=== PATIENT | female | born 1970 | race Two or more races ===

== ENCOUNTER → 2016-10-22 | Outpatient (CLI) | payer BC ==
--- NOTE | 2016-10-22 15:49 | WOMENS IMAGING REPORT ---
EXAM DESCRIPTION: BILAT SCREENING MAMMO W/CAD COMPLETED DATE/TIME: 10/22/2016 11:45 am REASON FOR STUDY: Z12.31 ROUTINE SCREENING MAMMO Z12.31 ENCNTR SCREEN MAMMOGRAM FOR MALIGNANT NEOPL ASM OF [place] COMPARISON: None. TECHNIQUE: Standard craniocaudal and mediolateral oblique views of each breast recorded using [employer] l acquisition. LIMITATIONS: None. FINDINGS: No masses, calcifications or architectural distortion. No areas of suspicion. Read with the assistance of CAD. .[facility] - R2 Cenova Version 1.3 .[facility] - R2 Cenova Version 1.3 .[facility] - R2 Cenova Version 2.4 .[facility] [place] [place] - R2 Cenova Version 2.4 .[facility] - R2 [employer] Version 9.2 BREAST DENSITY: c. The breasts are heterogeneously dense, which may obscure small masses. BIRAD: 1 NEGATIVE RECOMMENDATION: ROUTINE SCREENING COMMENT: PATIENT NOTIFIED BY LETTER. The [employer] recommends an annual screening mammogram for women aged 40 years or over. Each patient will receive a reminder prior to the anniversary date of her mammogram. The [employer] (ACR) has developed recommendations for screening MRI of the breast s in certain patient populations, to be used in conjunction with mammography. Breast MRI surveillanc e may be appropriate for women with more than 20% lifetime risk of developing breast cancer as deter mined by genetic testing, significant family history of the disease, or history of mantle radiation f or Hodgkins Disease. ACR Practice Guidelines 2008. TECHNICAL DOCUMENTATION: FINDING NUMBER: (1) ASSESSMENT: (1) JOB ID: [id number] [employer]- All Rights Reserved
== END ==
LOC: WI 11:32
PROVIDERS: ATTEND Family Medicine
DX: Z12.31 Encounter for screening mammogram for malignant neoplasm of breast (principal)
CPT/HCPCS: 77067; G0202

== ENCOUNTER 2019-08-27 09:08 | Emergency (ER) | payer BC ==
[2019-08-27 10:33] LABS: ABSOLUTE BASOPHILS # (AUTO) 0.1 10^3/uL (0.0-0.2); ABSOLUTE EOSINOPHILS # (AUTO) 0.1 10^3/uL (0.0-0.6); ABSOLUTE LYMPHOCYTES (AUTO) 1.5 10^3/uL (0.5-4.7); ABSOLUTE MONOCYTES (AUTO) 0.5 10^3/uL (0.1-1.4); ABSOLUTE NEUT (AUTO) 4.5 10^3/uL (1.7-8.2); BASOPHILS % (AUTO) 0.8 % (0-2); EOSINOPHILS % (AUTO) 1.9 % (0-6); HEMATOCRIT 39.9 % (36.0-47.0); HEMOGLOBIN 13.6 g/dL (12.0-15.5); LYMPHOCYTES % (AUTO) 22.3 % (13-45); MEAN CORPUSCULAR HEMOGLOBIN 31.9 pg (27.0-33.4); MEAN CORPUSCULAR VOLUME 94 fl (80-97); MONOCYTES % (AUTO) 7.1 % (3-13); PLATELET COUNT 303 10^3/uL (150-450); RED BLOOD COUNT 4.25 10^6/uL (3.72-5.28); RED CELL DISTRIBUTION WIDTH 13.4 % (11.5-14.0); SEGMENTED NEUTROPHILS % (AUTO) 67.9 % (42-78); TOTAL CELLS COUNTED % (AUTO) 100 %; WHITE BLOOD COUNT 6.6 10^3/uL (4.0-10.5)
--- NOTE | 2019-08-27 10:35 | RADIOLOGY REPORT (SQ) ---
EXAM DESCRIPTION: CHEST 2 VIEWS COMPLETED DATE/TIME: 08/27/2019 10:20 am REASON FOR STUDY: chest pain protocol COMPARISON: None. EXAM PARAMETERS: NUMBER OF VIEWS: two views TECHNIQUE: Digital Frontal and Lateral radiographic views of the chest acquired. RADIATION DOSE: NA LIMITATIONS: none FINDINGS: LUNGS AND PLEURA: No opacities, masses or pneumothorax. No pleural effusion. MEDIASTINUM AND HILAR STRUCTURES: No masses or contour abnormalities. HEART AND VASCULAR STRUCTURES: Heart normal size. No evidence for failure. BONES: No acute findings. HARDWARE: None in the chest. OTHER: No other significant finding. IMPRESSION: NO ACUTE RADIOGRAPHIC FINDING IN THE CHEST. TECHNICAL DOCUMENTATION: JOB ID: [id number] [email or web address]- All Rights Reserved Reading location - IP/workstation name: [email or web address]
[2019-08-27 10:58] LABS: ALBUMIN 4.7 g/dL (3.5-5.0); ALKALINE PHOSPHATASE 54 U/L (38-126); ANION GAP 11 (5-19); ASPARTATE AMINO TRANSFERASE 27 U/L (14-36); BILIRUBIN,TOTAL 0.4 mg/dL (0.2-1.3); BLOOD UREA NITROGEN 16 mg/dL (7-20); CARBON DIOXIDE 28 mmol/L (22-30); CHLORIDE 103 mmol/L (98-107); CREATINE KINASE 129 U/L (30-135); GLUCOSE 91 mg/dL (75-110); POTASSIUM 5.1 mmol/L (3.6-5.0); TOTAL PROTEIN 8.4 g/dL (6.3-8.2)
[2019-08-27 11:09] LABS: CREATINE KINASE MB 0.89 ng/mL (<4.55); TROPONIN I < 0.012 ng/mL
--- NOTE | 2019-08-27 17:46 | ER Document Report ---
ED General - General Chief Complaint: Chest Pain Stated Complaint: CHEST PAIN/DIFFICULTY BREATHING Time Seen by Provider: 08/27/19 10:20 Primary Care Provider: MILES AGUILA MD [Primary Care Provider] - Follow up as needed TRAVEL OUTSIDE OF THE [place] IN LAST 30 DAYS: No - HPI Notes: Patient is a 48-year-old female who presents emergency department for evaluation of chest pain. She states that on Friday night she developed nausea, vomiting, diarrhea. She states the next night she had cramping but behind her knees, left side worse than right. Last night she developed a chest tightness. It does not radiate, is in the substernal area. She states she felt somewhat short of breath with this. She states that she had 2 or 3 episodes of this last night. It lasted 30 seconds to 2 minutes. No aggravating or relieving factors. She states this morning when she woke up the chest tightness was there, and was constant for several hours. It waxed and waned in intensity but never really went away. She again denies any aggravating or alleviating factors. She denies any chest tightness or pain at this time. She states she believes this might be anxiety. She has no personal history of blood clots, no family history of blood clots. She has no personal history of cancer, no prolonged immobilization, no recent surgeries. She is not on oral contraceptives, does not smoke. - Related Data Allergies/Adverse Reactions: No Known Allergies Allergy (Verified 08/27/19 09:46) Home Medications: multivitamin. fish oil. atorvastatin. hydrochlorathizide. bp Past Medical History - General Information source: Patient - Social History Smoking Status: Never Smoker Chew tobacco use (# tins/day): No Frequency of alcohol use: Occasional Drug Abuse: None Family History: Reviewed & Not Pertinent Patient has suicidal ideation: No Patient has homicidal ideation: No - Past Medical History Cardiac Medical History: Reports: Hx Hypercholesterolemia, Hx Hypertension - pre-htn/NO MEDS Denies: Hx Heart Attack Neurological Medical History: Denies: Hx Cerebrovascular Accident, Hx Seizures GI Medical History: Denies: Hx Hepatitis, Hx Hiatal Hernia, Hx Ulcer Infectious Medical History: Denies: Hx Hepatitis Past Surgical History: Denies: Hx Hysterectomy, Hx Mastectomy, Hx Open Heart Surgery, Hx Pacemaker Review of Systems - Review of Systems Constitutional: No symptoms reported EENT: No symptoms reported Cardiovascular: No symptoms reported Respiratory: See HPI Gastrointestinal: See HPI Genitourinary: No symptoms reported Musculoskeletal: No symptoms reported Skin: No symptoms reported Neurological/Psychological: No symptoms reported Physical Exam - Vital signs Vitals: Temp Pulse Resp BP Pulse Ox 97.9 F 55 L 18 128/78 H 100 08/27/19 09:36 08/27/19 09:36 08/27/19 09:36 08/27/19 09:36 08/27/19 09:36 - Notes Notes: Vital signs reviewed, please refer to chart. Head is normocephalic, atraumatic. Pupils equal round, reactive to light. Neck is supple without meningismus. Heart is regular rate and rhythm. Lungs are clear to auscultation bilaterally. Abdomen is soft, nontender, normoactive bowel sounds throughout. Extremities without cyanosis, clubbing. Posterior calves are nontender. Peripheral pulses are equal. Skin is warm and dry. Patient is awake, alert, neurological exam is nonfocal. Course - Re-evaluation Re-evalutation: 08/27/19 17:44 Patient presents emergency department for evaluation of chest tightness and pain. She had nausea and vomiting earlier this week. Her nausea and vomiting resolved. She had some chest tightness associated with this. She states that this was not exertional. It certainly would be atypical for any sort of anginal pain. Laboratory investigations and EKG were obtained. Troponins were undetectable x2. Patient is chest pain-free at this time. She has no significant risk factors for PE. Her vitals are stable, her heart rate is in the 60s. At this point I expanded the patient I cannot fully rule out coronary artery disease, especially given her risk factors. I strongly encouraged her to follow-up with her primary care provider, and she will do so next week. She understands that if she develops worsening or new concerning symptoms of any sort she needs to return immediately to the emergency department for evaluation. 08/27/19 17:45 I did discuss with the patient that her potassium was mildly elevated. She denies excessive oral potassium intake. I recommended that she follow-up with her primary care provider in regards to this as well. - Vital Signs Vital signs: Temp Pulse Resp BP Pulse Ox 97.9 F 55 L 18 128/78 H 100 08/27/19 09:36 08/27/19 09:36 08/27/19 09:36 08/27/19 09:36 08/27/19 09:36 - Laboratory Result Diagrams: 08/27/19 10:05 08/27/19 10:05 Laboratory results interpreted by me: 08/27/19 10:05 Potassium 5.1 H Total Protein 8.4 H - Diagnostic Test Radiology reviewed: Reports reviewed Radiology results interpreted by me: 08/27/19 17:45 Chest X-Ray 08/27/19 00:00 IMPRESSION: NO ACUTE RADIOGRAPHIC FINDING IN THE CHEST. - EKG Interpretation by Me Additional EKG results interpreted by me: 08/27/19 17:45 Sinus bradycardia with a rate of 54 bpm. Normal axis and intervals, no acute ST changes concerning for ischemia or infarction Discharge - Discharge Clinical Impression: Chest tightness, Hyperkalemia Condition: Stable Disposition: HOME, SELF-CARE Instructions: Chest Pain of Unclear Cause ([facility]) Additional Instructions: No clear cause was found for your chest pain today. Your work-up here was largely unremarkable, with the exception of a mildly elevated potassium. Please follow-up with your primary care provider in regards to this. If you develop worsening pain, or new or concerning symptoms of any sort, please return immediately to the emergency department for evaluation. Referrals: MILES AGUILA MD [Primary Care Provider] - Follow up as needed
[2019-08-27 18:22] VITALS: BP 122/72
--- NOTE | 2019-08-28 11:41 | EKG REPORT ---
SEVERITY:- NORMAL ECG - SINUS RHYTHM : Confirmed by: Michelle Ann MD 28-Aug-2019 11:41:09
== END 2019-08-27 18:20 | disposition home or self-care (01) ==
LOC: ER 09:08
DX: R07.89 Other chest pain (principal); E87.5 Hyperkalemia; R06.02 Shortness of breath; R00.1 Bradycardia, unspecified; E78.00 Pure hypercholesterolemia, unspecified; Z79.899 Other long term (current) drug therapy
CPT/HCPCS: 36415; 71046; 80053; 82550; 82553; 84484; 85025; 93005; 93010; 99285